=== PATIENT | male | born 1990 | race Caucasian/White ===

== ENCOUNTER 2023-07-25 19:51 | Emergency (ER) | payer BC, SELFPAY ==
--- NOTE | 2023-07-25 | ECG_ITS ---
Test Reason : CHEST PAIN Blood Pressure : / mmHG Vent. Rate : 071 BPM Atrial Rate : 071 BPM P-R Int : 142 ms QRS Dur : 102 ms QT Int : 370 ms P-R-T Axes : 028 -09 011 degrees QTc Int : 402 ms Normal sinus rhythm Normal ECG No previous ECGs available Referred By: Generic ED Physician Electronically Signed By:JIMENA GÓMEZ MD
--- NOTE | ~2023-07-25 | XR_ITS ---
EXAMINATION: XR CHEST CLINICAL INFORMATION: Chest pain COMPARISON: None available. TECHNIQUE: Frontal view of the chest was obtained. FINDINGS: No significant abnormality is noted involving the heart, lungs, mediastinum, bony thorax or soft tissues. XR/XR chest 1V IMPRESSION: Unremarkable chest examination.
[2023-07-25 19:56] VITALS: BP 142/87; PULSE 73; RESP 22; TEMP 36.9; O2SAT 98; BMI 32.0
--- NOTE | 2023-07-25 20:02 | ED_ITS ---
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 Related Data Allergies Allergy/AdvReac Type Severity Reaction Status Date / Time No Known Allergies Allergy Verified 07/25/23 19:56 Review of Systems 2 Review of Systems: Pertinent positives and negatives as stated in HPI [facility] Past Medical History Source: nursing notes reviewed Social History Social History Alcohol intake: current Alcohol intake frequency: holidays/special occasions only Smoked in Last 30 Days: No Use of substances other than those prescribed or required for medical reasons: No Advance Directives: No Advance Directives Information Provided: Yes Physical Exam 2 Vital Signs: Vital Signs: Last Vital Signs Temp 97.5 F 07/25/23 23:54 Pulse 61 07/25/23 23:54 Resp 17 07/25/23 23:54 BP 122/84 07/25/23 23:54 Pulse Ox 95 07/25/23 23:54 O2 Del Method Room Air 07/25/23 23:54 BMI result Body Mass Index 32.0 VITAL SIGNS: Reviewed. GENERAL: Well developed, well nourished, in no acute distress. HEAD: Normocephalic/atraumatic EYES: PERRLA, EOMI EARS: Ext canals without abnormality, TMs non-bulging and non-erythematous NOSE: Nares patent bilateral OROPHARYNX: no oral lesions noted, posterior pharynx clear and non-erythematous without noted tonsillar enlargement/erythema/exudates NECK: Supple, no adenopathy LUNGS: Normal breath sounds. No adventitious sounds or accessory muscle use. SpO2<95> CARDIOVASCULAR: Regular rate and rhythm without noted murmurs ABDOMEN: Soft, non-tender, non-distended with bowel sounds. MUSCULOSKELETAL: No tenderness, deformities, or effusions noted on gross inspection. EXTREMITIES: No cyanosis, clubbing or edema. SKIN: Inspection of the skin reveals no rashes NEUROLOGIC: Alert and oriented x 4. Strength and sensation to light touch were grossly intact x 4. Course Course Course Narrative: RME: 32 yold male presents to the ED for chest while at work. patient denies any leg swelling, calf pain, pleurisy, fever, or chills. EKG, labs, an chest xray ordred Medications Administered Discontinued Medications Generic Name Dose Route Start Last Admin Trade Name [place] PRN Reason Stop Dose Admin Acetaminophen 975 mg 07/26/23 00:54 07/26/23 01:22 Acetaminophen 325 Mg Tablet PO 07/26/23 00:55 975 mg ONCE ONE Administration Ibuprofen 400 mg 07/26/23 00:54 07/26/23 01:22 Ibuprofen 400 Mg Tablet PO 07/26/23 00:55 400 mg ONCE ONE Administration Medical Decision Making Medical Decision Making [facility] Narrative: 32-year-old male with history and clinical presentation, DDX: Viral syndrome, strep pharyngitis, less likely felt to be pneumonia or ACS. Provided patient with combination analgesics. I reviewed all investigations and hematologic indices are negative for leukocytosis/left shift there is no evidence of anemia or thrombocytopenia. Coagulation studies are within normal limits. Chemistry indices are grossly within normal limits without evidence of АНДРЕЙ and there is no electrolyte or liver enzyme abnormalities. High sensitivity troponin is undetectable in there are no acute findings on EKG to better explain patient's chest discomfort. Viral testing is negative for COVID-19 and influenza and rapid strep is negative. Chest x-ray does not demonstrate any infiltrate and otherwise my interpretation is in agreement with radiology's impression pain On re-evaluation patient is feeling improved after the combination analgesics. Differential Diagnosis Differential Diagnoses: The differential diagnosis associated with the presentation includes Please see the discussion above Admission/Observation Consideration of admission/observation: Escalation of care including admission/observation considered Please see the discussion above Lab Data [facility] Lab Attestation statement: I reviewed the patient's lab results. Please see the discussion above 07/25/23 21:37 07/25/23 21:37 Labs: Lab Results 07/25/23 07/26/23 07/26/23 Range/Units 21:37 01:33 01:59 WBC 9.2 (4.8-10.8) X10*3/uL RBC 4.68 (4.60-5.80) X10*6/uL Hgb 15.1 (14.0-18.0) g/dl Hct 44.5 (42.0-52.0) % MCV 95.1 (80.0-98.0) fL MCH 32.3 (27.0-33.0) pg MCHC 33.9 (31.0-36.0) g/dl RDW 11.9 (11.0-16.0) % Plt Count 313 (160-400) X10*3/uL MPV 9.6 (9.4-12.4) fL Immature Gran % (Auto) 0.2 (0.0-0.4) % Neut % (Auto) 69.0 (45-73) % Lymph % (Auto) 24.2 (20-40) % [place] % (Auto) 6.0 (2-11) % Eos % (Auto) 0.2 (0-4) % Baso % (Auto) 0.4 (0-2) % Lymph # (Auto) 2.2 (1.2-4.9) X10*3/uL [place] # (Auto) 0.6 (0.1-1.2) X10*3/uL Eos # (Auto) 0.0 (0.0-0.4) X10*3/uL Baso # (Auto) 0.0 (0.0-0.2) X10*3/uL Abs Immat Gran (auto) 0.02 (0.00-0.03) X10*3/uL Absolute Neuts (auto) 6.4 (2.0-8.3) x10*3/uL Absolute Nucleated RBC 0.000 (0.0-0.012) X10*3/uL Nucleated RBC % (auto) 0.0 (0.0-0.2) /100WBC PT 11.7 (11.1-13.3) SEC INR 1.0 (0.9-1.1) APTT 31.0 (26.0-36.4) SEC Sodium 143 (135-145) mmol/L Potassium 3.8 (3.3-5.1) mmol/L Chloride 109 H (96-108) mmol/L Carbon Dioxide 24 (22-29) mmol/L Anion Gap 14 (12-20) BUN 12 (9-16) mg/dL Creatinine 0.96 (0.5-1.4) mg/dL Estim Creat Clear Calc 146.2 Estimated GFR > 60 Random Glucose 111 (60-115) mg/dL Calcium 9.5 (8.4-10.2) mg/dL Total Bilirubin 0.6 (0.0-1.0) mg/dL AST 23 (5-37) U/L ALT 32 (0-40) U/L Alkaline Phosphatase 71 (39-117) U/L Troponin I High Sens < 2.7 (<3.5-35.0) ng/L Total Protein 7.8 (6.5-8.0) g/dL Albumin 4.3 (3.5-5.0) g/dL COVID-19 ([facility]) Negative (Negative) COVID-19 Clin Com See Note Influenza Type A ([facility]) Negative (Negative) Influenza Type B ([facility]) Negative (Negative) Influenza A & B Note See Note S. pyogenes GrpA [facility] Negative (Negative) Independent Interpretation I performed an independent interpretation of an: EKG Interpretation: Normal sinus rhythm, HR-71, no STEMI, [place]/QRS/QTC is within normal limits. Radiology Impression Discussion of test interpretation with radiology: I have reviewed the radiologist's reading. Radiologist Impression: Please see the discussion above Discharge Plan Discharge Clinical Impression: Viral syndrome, Atypical chest pain Patient Disposition: Home, Self-Care Instructions: Viral Syndrome (ED), General Headache (ED) Additional Instructions: 1. Recomiende Tylenol/ibuprofeno de venta marlene seg?n sea necesario para linda corporales, temperaturas superiores a 100,4 y linda de tonia. Si solo siente dolor de tonai, le recomiendo Excedrin migra?a. Mantente mihir hidratado con agua. 2. Programe la atenci?n con un proveedor de atenci?n primaria lo antes posible. Regrese a la denia de emergencias si los s?ntomas empeoran. 1. Recommend [id number] Tylenol/ibuprofen as needed for body aches, temperatures greater than 100.4 and headaches. If you are only experiencing a headache I highly recommend Excedrin migraine. Stay well hydrated with water. 2. Please set up care with a primary care provider at your earliest convenience. Return to the ER for any worsening symptoms. Stand Alone Forms: Work/School Release Interventions: ED Discharge Assessment Last Done: 07/26/23 04:50 Discharge Date/Time: 07/26/23 04:51 Print Language: [place] Rican
[2023-07-25 21:42] LABS: MANUAL DIFF FLAG NO
[2023-07-25 21:43] LABS: Basophils Percent Auto 0.4 % (0-2); Eosinophils Percent Auto 0.2 % (0-4); Hematocrit 44.5 % (42.0-52.0); Hemoglobin 15.1 g/dl (14.0-18.0); Imm Gran Abs Auto 0.02 X10*3/uL (0.00-0.03); Imm Gran Pct Auto 0.2 % (0.0-0.4); Lymphocytes Absolute Auto 2.2 X10*3/uL (1.2-4.9); Lymphocytes Percent Auto 24.2 % (20-40); Mean Corpuscular HGB Conc 33.9 g/dl (31.0-36.0); Mean Corpuscular Hemoglobin 32.3 pg (27.0-33.0); Mean Corpuscular Volume 95.1 fL (80.0-98.0); Mean Platelet Volume 9.6 fL (9.4-12.4); Monocytes Absolute Auto 0.6 X10*3/uL (0.1-1.2); Neutrophils Absolute Auto 6.4 x10*3/uL (2.0-8.3); Platelet Count 313 X10*3/uL (160-400); Red Blood Count 4.68 X10*6/uL (4.60-5.80); Red Cell Distribution Width 11.9 % (11.0-16.0); White Blood Count 9.2 X10*3/uL (4.8-10.8)
[2023-07-25 21:56] LABS: Prothrombin Time 11.7 SEC (11.1-13.3)
[2023-07-25 22:48] VITALS: BP 140/65; PULSE 61; RESP 20; O2SAT 97
[2023-07-25 23:25] LABS: Alanine Aminotransferase 32 U/L (0-40); Albumin Level 4.3 g/dL (3.5-5.0); Alkaline Phosphatase 71 U/L (39-117); Anion Gap 14 (12-20); Aspartate Amino Transferase 23 U/L (5-37); Bilirubin Total 0.6 mg/dL (0.0-1.0); Blood Urea Nitrogen 12 mg/dL (9-16); Calcium 9.5 mg/dL (8.4-10.2); Carbon Dioxide 24 mmol/L (22-29); Chloride 109 mmol/L (96-108); Creatinine Clr Calc Pharmacy 146.2; Estimated Glomerular Filt Rate > 60; Glucose Random 111 mg/dL (60-115); Potassium 3.8 mmol/L (3.3-5.1); Sodium 143 mmol/L (135-145); Total Protein 7.8 g/dL (6.5-8.0); Troponin-I High Sensitivity < 2.7 ng/L (<3.5-35.0)
[2023-07-25 23:54] VITALS: BP 122/84; PULSE 61; RESP 17; TEMP 36.4; O2SAT 95
[2023-07-26] MEDS: Acetaminophen 325 MG TABLET 975 MG PO (01:22)
[2023-07-26] MEDS: Ibuprofen 400 MG TABLET PO (01:22)
[2023-07-26 02:02] LABS: COVID-19 Test Negative (Negative); IDNOW Serial# 08D9AD1C; IDNOW Serial# BCCEAD1C; Influenza A Negative (Negative); Influenza B2 Negative (Negative)
[2023-07-26 02:14] LABS: IDNOW Serial# 08D9AD1C; Strep A Nucleic Acid Negative (Negative)
== END 2023-07-26 04:51 | disposition home or self-care (01) ==
PROVIDERS: Physician Assistant; Emergency Provider Student in an Organized Health Care Education/Training Program
DX: B34.9 Viral infection, unspecified (principal); R07.89 Other chest pain; R51.9 Headache, unspecified; R06.02 Shortness of breath; Z11.52 Encounter for screening for COVID-19
CPT/HCPCS: 36415; 71045; 80053; 84484; 85025; 85610; 85730; 87502; 87635; 87651; 93005; 99283; 99285

== ENCOUNTER 2023-07-31 12:07 | Emergency (ER) | payer BC, SELFPAY ==
--- NOTE | 2023-07-31 12:17 | ECG_ITS ---
Test Reason : cp Blood Pressure : / mmHG Vent. Rate : 061 BPM Atrial Rate : 061 BPM P-R Int : 140 ms QRS Dur : 090 ms QT Int : 368 ms P-R-T Axes : 037 -06 007 degrees QTc Int : 370 ms Normal sinus rhythm Normal ECG No significant changes seen Referred By: Berenice Ulloa Electronically Signed By:JIMENA GÓMEZ MD
[2023-07-31 12:18] VITALS: BP 130/85; PULSE 63; RESP 20; TEMP 36.6; O2SAT 100; BMI 33.0
--- NOTE | 2023-07-31 12:19 | ED.CHESTPAIN ---
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 Patient states that he has had a constant headache for the last month. He has been to hospital in [place] as well as [facility] [place] last week but he has not had any relief. Patient's describes this headache pain as a tight band like sensation going around his entire head. He denies any relieving medications. He denies positional changes worsening his headache. He reports intermittent nausea. He also endorses chest pain. Denies shortness of breath. He states that he is currently going through a divorce and is under a significant amount of stress and emotional turmoil since this occurred. Denies any other complaints or concerns at this time. MD complaint: chest pain Onset (ago): month(s) Timing of current episode: constant Prior episodes: Yes Pain radiation: none Relieving factors: nothing Exacerbating factors: nothing Associated symptoms: nausea Treatment prior to arrival: none Risk Factors Coronary artery disease risk factors: none Thoracic aortic dissection risk factors: none Related Data Allergies Allergy/AdvReac Type Severity Reaction Status Date / Time No Known Allergies Allergy Verified 07/25/23 19:56 Review of Systems Review of Systems: Yes all other systems are reviewed and are negative Constitutional: Constitutional: Reports as per [facility] Past Medical History Attestation statement: The following information was validated with the patient. Social History Social History Alcohol intake: current Alcohol intake frequency: holidays/special occasions only Advance Directives: No Advance Directives Information Provided: No Physical Exam Vital Signs: Vital Signs: Last Vital Signs Temp 98 F 07/31/23 18:52 Pulse 62 07/31/23 18:52 Resp 18 07/31/23 18:52 BP 126/70 07/31/23 18:52 Pulse Ox 100 07/31/23 18:52 O2 Del Method Room Air 07/31/23 18:52 BMI result Body Mass Index 33.0 Const: General: cooperative, comfortable and no acute distress Orientation/consciousness: patient oriented x3 Limitations: no limitations HEENT: Head: Yes normal to inspection, Yes normocephalic and Yes atraumatic Ears: hearing grossly normal bilaterally and TM's normal bilaterally General nose exam: Normal external nose present Face and sinus: Yes normal facial exam Mouth: Normal oral and palatal mucosa present, oropharynx normal and moist mucous membranes Throat: Yes posterior oropharynx normal Eyes: General: appearance normal, both eyes and all related structures Eyelids: Yes eyelids normal Conjunctivae: conjunctivae normal Sclerae: sclerae normal Pupils: Equal, round and reactive pupils present EOM: EOMs intact bilaterally Neck: Neck: Yes normal visual inspection, Yes full ROM and Yes no lymphadenopathy Lymphatic: no lymphadenopathy noted Chest: Other: Tenderness to palpation along the anterior chest wall. Chest palpation & inspection: normal inspection of the chest Resp: Effort & Inspection: normal respiratory effort and able to speak in complete sentences Auscultation: clear to auscultation bilaterally, no crackles, no rales, no rhonchi and no wheezes Cardio: Rate: regular rate Rhythm: regular rhythm Heart sounds: S1 normal heart sound present and S2 normal heart sound present GI: Inspection: Yes normal to inspection Skin: General skin exam: no rashes or lesions noted Trauma: no lacerations or abrasions Wounds: no wounds Neuro: General: patient oriented x3, moves all extremities and CN's II-XI intact bilaterally Cranial nerves: Yes CN's II-XII intact bilaterally, Yes Equal, round and reactive pupils present, Yes Nystagmus not present, Yes Ability to bilaterally rotate head present and Yes Ability to bilaterally elevate shoulders present Cognition (Neuro): normal cognition Gait exam (Neuro): Normal gait present Motor exam (neuro): 5/5 motor strength present throughout and Pronator motor function not present Extrem: General: Yes normal to inspection Right upper extremity: normal to inspection Left upper extremity: normal to inspection Right lower extremity: normal to inspection Left lower extremity: normal to inspection Course Course Course Narrative: RME: 32yo M w/no sig PMHx c/o constant MCGILL and chest pain x1 month. Has been taking Motrin w/o relief. Patient was seen in our ED on 07/25 for similar sx, had negative w/u. Admits sx are the same just not going away. EKG, Labs, COVID testing ordered Full HPI, ROS and PE to be performed by primary ED provider. Reevaluation(s) Reevaluation #1: Patient's symptoms improved after receiving a migraine cocktail. EKG without any acute findings. Negative troponin. Less likely ACS. I believe patient's symptoms are consistent with tension-type like headache/migraine. Discussed findings with patient. Advised to stay well hydrated, rest and follow-up with primary care physician. Advised to return with any new or worsening symptoms. Patient understands and agrees with plan. Patient stable discharge. Time: 18:49 Medications Administered Discontinued Medications Generic Name Dose Route Start Last Admin Trade Name Freq PRN Reason Stop Dose Admin Acetaminophen/Butalbital/Caffeine 2 tab 07/31/23 15:49 07/31/23 15:54 Butalb/Acetamin/Caff 50/325/40 Tablet PO 07/31/23 15:50 2 tab ONCE ONE Administration Diphenhydramine HCl 50 mg 07/31/23 16:43 07/31/23 16:59 Diphenhydramine Hcl 50 Mg/Ml Vial IVPUSH 07/31/23 16:44 50 mg ONCE ONE Administration Sodium Chloride 1,000 mls @ 999 mls/hr 07/31/23 16:43 07/31/23 18:14 Ns IV 07/31/23 17:43 Infused .Q1H1M ONE Infusion Ketorolac Tromethamine 30 mg 07/31/23 16:43 07/31/23 16:58 Ketorolac Tromethamine 30 Mg/Ml Vial IVPUSH 07/31/23 16:44 30 mg ONCE ONE Administration Metoclopramide HCl 10 mg 07/31/23 16:43 07/31/23 16:59 Metoclopramide Hcl 10 Mg/2 Ml Vial IVPUSH 07/31/23 16:44 10 mg ONCE ONE Administration Medical Decision Making Medical Decision Making MDM Narrative: 32-year-old male presenting to the emergency department for evaluation of headache and chest pain x1 month. Patient has been seen in a [place] hospital where he had imaging which was negative. He also reports that he was seen last week for similar symptoms. He has been taking ibuprofen without any relief. On arrival, vital signs within normal limits. Patient is neurologically intact. Labs EKG and COVID testing was ordered in triage. No acute findings. Patient was also medicated with Fioricet in the department which provided him without any relief. Patient admits to having significant stressors at home, reports that he is in the middle of a divorce which is stressful for him. Differential diagnoses include tension type headache, migraine headache, ACS-unlikely. Plan: Migraine cocktail and reassess. Differential Diagnosis Differential Diagnoses: The differential diagnosis associated with the presentation includes See above Lab Data MDM Lab Attestation statement: I reviewed the patient's lab results. No leukocytosis, stable H&H, troponin negative. 07/31/23 12:32 07/31/23 12:32 Labs: Lab Results 07/31/23 Range/Units 12:32 WBC 8.2 (4.8-10.8) X10*3/uL RBC 4.92 (4.60-5.80) X10*6/uL Hgb 16.2 (14.0-18.0) g/dl Hct 47.4 (42.0-52.0) % MCV 96.3 (80.0-98.0) fL MCH 32.9 (27.0-33.0) pg MCHC 34.2 (31.0-36.0) g/dl RDW 12.0 (11.0-16.0) % Plt Count 315 (160-400) X10*3/uL MPV 9.6 (9.4-12.4) fL Immature Gran % (Auto) 0.2 (0.0-0.4) % Neut % (Auto) 71.3 (45-73) % Lymph % (Auto) 21.3 (20-40) % [place] % (Auto) 6.1 (2-11) % Eos % (Auto) 0.6 (0-4) % Baso % (Auto) 0.5 (0-2) % Lymph # (Auto) 1.7 (1.2-4.9) X10*3/uL [place] # (Auto) 0.5 (0.1-1.2) X10*3/uL Eos # (Auto) 0.1 (0.0-0.4) X10*3/uL Baso # (Auto) 0.0 (0.0-0.2) X10*3/uL Abs Immat Gran (auto) 0.02 (0.00-0.03) X10*3/uL Absolute Neuts (auto) 5.8 (2.0-8.3) x10*3/uL Absolute Nucleated RBC 0.000 (0.0-0.012) X10*3/uL Nucleated RBC % (auto) 0.0 (0.0-0.2) /100WBC Sodium 144 (135-145) mmol/L Potassium 4.2 (3.3-5.1) mmol/L Chloride 107 (96-108) mmol/L Carbon Dioxide 27 (22-29) mmol/L Anion Gap 14 (12-20) BUN 13 (9-16) mg/dL Creatinine 1.11 (0.5-1.4) mg/dL Estim Creat Clear Calc 128.5 Estimated GFR > 60 Random Glucose 106 (60-115) mg/dL Calcium 10.6 H D (8.4-10.2) mg/dL Total Bilirubin 0.5 (0.0-1.0) mg/dL Direct Bilirubin 0.1 (0.0-0.5) mg/dL AST 24 (5-37) U/L ALT 38 (0-40) U/L Alkaline Phosphatase 65 (39-117) U/L Troponin I High Sens < 2.7 (<3.5-35.0) ng/L Total Protein 7.9 (6.5-8.0) g/dL Albumin 4.2 (3.5-5.0) g/dL COVID-19 ([facility]) Negative (Negative) COVID-19 Clin Com See Note Independent Interpretation I performed an independent interpretation of an: EKG Interpretation: EKG normal sinus rhythm with ventricular rate of 61 beats per minute, no ST elevation or depression. QTC 370 Radiology Impression Discussion of test interpretation with radiology: I have reviewed the radiologist's reading. External Record Review External record reviewed: Inpatient record, Office record, Outpatient record, Prior outpatient labs, Prior outpatient radiology, Primary care record and Outside ED record Discharge Plan Discharge Clinical Impression: Acute tension headache Patient Disposition: Home, Self-Care Instructions: Tension Headache (ED), Acute Headache (ED) Additional Instructions: You presented to the emergency department due to head pain and chest pain. Your EKG and labs are reassuring today. We gave you medications to help with your headache. Please rest, drink plenty of fluids, and stay in a quiet dark room. Stressed can be a contributor to these types of headaches. It is important to lower stress levels whether that is with exercise, meditation, or therapy. If any new or worsening symptoms occur including but not limited to worsening headaches, dizziness, chest pain, shortness of breath, please return for re-evaluation. Usted acudi? al servicio de urgencias por dolor de tonia y dolor de pecho. Rivas electrocardiograma y bernardo an?lisis de laboratorio son tranquilizadores hoy. Le dimos medicamentos para ayudarle con rivas dolor de tonia. Descanse, marzena muchos l?quidos y permanezca en fadi habitaci?n tranquila y oscura. El estr?s puede contribuir a cesar tipo de linda de tonia. Es importante reducir los niveles de estr?s, ya sea mediante ejercicio, meditaci?n o terapia. Si se presenta alg?n s?ntoma nuevo o que empeora, incluidos, entre otros, empeoramiento de los linda de tonia, mareos, dolor en el pecho y dificultad para respirar, regrese para fadi nueva evaluaci?n. Stand Alone Forms: Work/School Release
[2023-07-31 12:36] LABS: MANUAL DIFF FLAG NO
[2023-07-31 12:39] LABS: Basophils Percent Auto 0.5 % (0-2); Eosinophils Absolute Auto 0.1 X10*3/uL (0.0-0.4); Eosinophils Percent Auto 0.6 % (0-4); Hematocrit 47.4 % (42.0-52.0); Hemoglobin 16.2 g/dl (14.0-18.0); Imm Gran Abs Auto 0.02 X10*3/uL (0.00-0.03); Imm Gran Pct Auto 0.2 % (0.0-0.4); Lymphocytes Absolute Auto 1.7 X10*3/uL (1.2-4.9); Lymphocytes Percent Auto 21.3 % (20-40); Mean Corpuscular HGB Conc 34.2 g/dl (31.0-36.0); Mean Corpuscular Hemoglobin 32.9 pg (27.0-33.0); Mean Corpuscular Volume 96.3 fL (80.0-98.0); Mean Platelet Volume 9.6 fL (9.4-12.4); Monocytes Absolute Auto 0.5 X10*3/uL (0.1-1.2); Monocytes Percent Auto 6.1 % (2-11); Neutrophils Absolute Auto 5.8 x10*3/uL (2.0-8.3); Neutrophils Percent Auto 71.3 % (45-73); Platelet Count 315 X10*3/uL (160-400); Red Blood Count 4.92 X10*6/uL (4.60-5.80); White Blood Count 8.2 X10*3/uL (4.8-10.8)
[2023-07-31 12:52] LABS: Alanine Aminotransferase 38 U/L (0-40); Albumin Level 4.2 g/dL (3.5-5.0); Alkaline Phosphatase 65 U/L (39-117); Anion Gap 14 (12-20); Aspartate Amino Transferase 24 U/L (5-37); Bilirubin Direct 0.1 mg/dL (0.0-0.5); Bilirubin Total 0.5 mg/dL (0.0-1.0); Blood Urea Nitrogen 13 mg/dL (9-16); Calcium 10.6 mg/dL (8.4-10.2); Carbon Dioxide 27 mmol/L (22-29); Chloride 107 mmol/L (96-108); Creatinine Clr Calc Pharmacy 128.5; Estimated Glomerular Filt Rate > 60; Glucose Random 106 mg/dL (60-115); Potassium 4.2 mmol/L (3.3-5.1); Sodium 144 mmol/L (135-145); Total Protein 7.9 g/dL (6.5-8.0)
[2023-07-31 12:55] LABS: COVID-19 Test Negative (Negative); IDNOW Serial# BCCEAD1C
[2023-07-31 13:04] LABS: Troponin-I High Sensitivity < 2.7 ng/L (<3.5-35.0)
[2023-07-31] MEDS: Butalb/Acetamin/Caff 50/325/40 TABLET 2 TAB PO (15:54)
[2023-07-31 15:55] VITALS: BP 124/82; PULSE 61; RESP 17; TEMP 36.2; O2SAT 99
[2023-07-31] MEDS: Ketorolac Tromethamine 30 MG/ML VIAL IVPUSH (16:58)
[2023-07-31] MEDS: Metoclopramide HCl 10 MG/2 ML VIAL IVPUSH (16:59)
[2023-07-31] MEDS: diphenhydrAMINE HCL 50 MG/ML VIAL IVPUSH (16:59)
[2023-07-31] MEDS: 0.9 % Sodium Chloride 1,000 ML 999 ML IV (17:09)
[2023-07-31 18:52] VITALS: BP 126/70; PULSE 62; RESP 18; TEMP 36.6; O2SAT 100
== END 2023-07-31 19:23 | disposition home or self-care (01) ==
PROVIDERS: Physician Assistant; Emergency Provider Emergency Medicine
DX: G44.209 Tension-type headache, unspecified, not intractable (principal); R07.9 Chest pain, unspecified; Z11.52 Encounter for screening for COVID-19
CPT/HCPCS: 80048; 80076; 84484; 85025; 87635; 93005; 96361; 96374; 96375; 99284; J1200; J1885; J2765

== ENCOUNTER 2024-09-03 16:11 | Outpatient (REF) | payer BC, SELFPAY ==
[2024-09-04 06:13] LABS: CT PCR NOT DETECTED (Not Detect.); NG PCR NOT DETECTED (Not Detect.)
== END 2024-09-03 16:12 | disposition home or self-care (01) ==
LOC: HO.CHCLNP 16:11
PROVIDERS: Visit Provider Family Medicine
DX: Z11.3 Encounter for screening for infections with a predominantly sexual mode of transmission (principal)
CPT/HCPCS: 87491; 87591

== ENCOUNTER → 2024-12-07 17:07 | Outpatient (BNV) | payer OTHER, SELFPAY | PROVIDERS: PCP Family Medicine; Visit Provider Radiology Diagnostic Radiology | DX: R51.9 Headache, unspecified (principal) | CPT/HCPCS: 70551 ==

== ENCOUNTER 2024-12-07 17:22 | Outpatient (REF) | payer OTHER, SELFPAY ==
--- NOTE | ~2024-12-07 | MR_ITS ---
EXAMINATION: MR BRAIN WITHOUT IV CONTRAST HISTORY: NEW PERSISTENT DAILY MCGILL TECHNIQUE: Sagittal T1, and axial T1, FLAIR, T2, gradient echo, and diffusion weighted MR images of the brain were obtained. COMPARISON: None FINDINGS: The brain parenchyma is unremarkable, demonstrating normal anderson/white differentiation. No foci of abnormal signal intensity are identified. The ventricular system is normal in size and configuration. There is no mass effect or midline shift. No intra or extra-axial fluid collections are identified. There are no foci of restricted diffusion. Normal vascular flow voids are noted in the basilar and carotid arteries. The visualized paranasal sinuses are clear. MR/MR head/brain wo con IMPRESSION: Unremarkable MRI of the brain without contrast. Electronically signed by: Raymond Pratt MD 12/08/2024 03:44 PM EDT
--- OUTSIDE RECORDS SUMMARY | 2024-12-07 17:24 | XMS_ITS | Clinical Summary ---
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 12 tablet 11/30/2019 Active ibuprofen (MOTRIN) 600 MG tablet Take 1 tablet (600 mg total) by mouth 3 (three) times a day as needed for mild pain (pain). 12 tablet 11/30/2019 Active lidocaine (PROZENA) 4 % patch Place 1 patch on the skin daily. 30 patch 11/30/2019 Active butalbital-acetaminop hen-caffeine (FioriCET, ESGIC) 50-325-40 mg tablet Take 1 tablet by mouth every 4 (four) hours as needed for pain. Max: 6 capsules/tablets in 24 hours 10 tablet 09/10/2020 Active Immunizations Name Administration Dates Next Due Covid-19 MRNA Vaccine - Pfizer 12+ (Purple Cap) 01/31/2021,01/10/2021 Social History Tobacco Use Types Packs/Day Years Used Date Smoking Tobacco: Never Smokeless Tobacco: Never Alcohol Use Standard Drinks/Week Comments No 0 (1 standard drink = 0.6 oz pur e alcohol) Sex and Gender Information Value Date Recorded Sex Assigned at Male 06/13/2023 12:47 PM EDT Gender Identity Male 06/13/2023 12:47 PM EDT Sexual Orientation Heterosexual (straight) 06/13 12:47 PM EDT Last Filed Vital Signs Vital Sign Reading Time Taken Comments Blood Pressure 133/87 06/13/2023 8:29 PM EDT Pulse 64 06/13/2023 8:29 PM EDT Temperature 36 ??C (96.8 ??F) 06/13/2023 8:29 PM EDT Respiratory Rate 17 06/13/2023 8:29 PM EDT Oxygen Saturation 100% 06/13/2023 8:29 PM EDT Inhaled Oxygen Concentration - - Weight - - Height - - Body Mass Index - - Plan of Treatment Health Maintenance Due Date Last Done Comments Hepatitis C Virus Screening 1989 HIV Screening 2002 DTaP/Tdap/Td Vaccines (1 - Tdap) 2008 Hepatitis B Vaccines (1 of 3 - 19+ 3-dose series) 2008 Influenza Vaccine 05/01/2024 COVID-19 Vaccine (2023-2 5 season) 2024 01/31/2021, 01/10/2021 HPV Vaccines Aged Out No longer eligi ble based on patient's age to complete this topic Pneumococcal Vaccine: Pediatric (0-5 Years) and At-Risk Patients (6 to 49 Years) Aged Out No longer eligible b ased on patient's age to complete this topic Care Teams 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
--- OUTSIDE RECORDS SUMMARY | 2024-12-07 17:24 | XMS_ITS | Clinical Summary ---
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 1 kit 09/03/2024 Active aspirin-acetami nophen-caffeine (Excedrin Migraine) 250-250-65 MG tablet Take 2 tablets by mouth every 8 (eight) hours if needed for headaches. 60 tablet 09/03/2024 Active amLODIPine (Norvasc) 5 MG tablet Take 1 tablet (5 mg) by mouth Once per day. 90 tablet 1 09/18/2024 Active amitriptyline (Elavil) 25 MG tablet Take 2 tablets (50 mg) by mouth at bedtime. 180 tablet 1 09/18/2024 Active Active Problems Problem Noted Date Diagnosed Date Primary hypertension 09/18/2024 Assessment & Plan (09/18/2024 12:02 PM EST): Nursing Visit Instructions: - If SBP < 140/DBP <90 mmHg in more than 75% of home self-monitoring, continue current medication regimen and make f/u with PCP in 3 month - If SBP >140-165/DBP >90-115 mmHg , add incr amlodipine to 10 mg and f/u with PCP in 1 month - If SBP > 165/ DBP> 115 mmHg, consult with covering provider - If SBP <90/DBP <50 mmHg, consult with covering provider. Begin Amlodipine and continue to monitor BP at home. Follow up in 2 weeks with nurse and at home readings. Follow up in one month. Class 1 obesity due to exces s calories without serious comorbidity with body mass index (BMI) of 34.0 to 34.9 in adult 09/03/2024 Assessment & Plan (09/04/2024 1:51 PM EST): Discussed calorie deficit, recommended reduction of 20-30% of maintenance calories; meal attendant referral offered. Recommended to decrease soda and sugary beverage consumption. Recommended at least 20 g per meal of protein to assist with satiety. Recommended at least 150 min/week of moderate intensity exercise. Sleep apnea 09/03/2024 Assessment & Plan (09/04/2024 1:51 PM EST): Ordering Sleep Test for further evaluation. STOP BANG of 4. Headache, chronic daily 09/03/2024 Assessment & Plan (09/18/2024 12:01 PM EST): Increasing Elavil and follow up on next visit. Advised to follow up with Neurologist on 09/23 and to complete lab work from previous visit at earliest convenience. Assessment & Plan (09/04/2024 1:52 PM EST): Ordering MRI and referral to Neurology for further evaluation. Given new daily headaches will send imaging Send ppx medication Resolved Problems Problem Noted Date Diagnosed Date Resolved Date Elevated blood pressure reading 09/03/2024 09/18/2024 Assessment & Plan (09/03/2024 3:43 PM EST): Ordering BP home kit for at home monitoring. Follow up in 2 weeks via telephone with readings. Relevant Orders Blood Pressure Kit Encounters Date Type Department Care Team Description 10/02/2024 2:00 PM EST Clinical Support [facility] [address] [place] [address] Darrion Laguerre, SOFIYA Primary hypertension 10/02/2024 Telephone [facility] [address] [facility] [place] [address] Randee Rebollar MD 10/02/2024 Travel 09/18/2024 11:30 AM EST Telemedicine [facility] [address] [facility] [place] [address] Randee Rebollar MD Headache, chronic daily (Primary Dx); Elevated blood pressure reading; Primary hypertension 09/18/2024 Travel 09/17/2024 Telephone [facility] [address] [place] [address] Randee Rebollar MD Chart prep 09/08/2024 Telephone [facility] [address] [place], [place] [id number] Randee Rebollar MD from Last 3 Months Immunizations Name Administration Dates Next Due Influenza, Injectable, MDCK, preservative free 1 11/04/2023 Pfizer Covid-19 Vaccine 12+ 09/03/2024 Tdap 09/03/2024 Family History Medical History Relation Name Comments Epilepsy Mother Thyroid disease Mother Relation Name Status Comments Mother Social History Tobacco Use Types Packs/Day Years Used Date Smoking Tobacco: Never Passive Smoke Exposure: Never Smokeless Tobacco: Never Tobacco Cessation:Counseling Given: Not Answered Alcohol Use Standard Drinks/Week Comments Yes 0 (1 standard drink = 0.6 oz pur e alcohol) Social Depression Answer Date Recorded Patient Health Questionnaire-9 Score 5 09/03/2024 Patient Health Questionnaire-9 Score 5 09/03/2024 Last PHQ-9: Questionnaire Data Not on file 1 11/04/2023 Housing Stability Answer Date Recorded What is your housing situation today? I have delio huber 08/21/[address] you li ve. Do you have problems with any of the following? None of the above 08/21/2024 Food Insecurity Answer Date Recorded Within the past 12 months, y ou worried that your food would run out before you got money to buy more: Never True 08/21/2024 Within the past 12 months,th e food you bought just didn't last and you didn't have enough money to get more: Never True Transportation Answer Date Recorded In the past 12 months, has l ack of transportation kept you from medical appts, meetings, work or from getting things needed for daily living? No 08/21/2024 Utilities Answer Date Recorded In the past 12 months, has t he electric, gas, oil or water company threatened to shut off services in your home? No 08/21/2024 Depression Answer Date Recorded Patient Health Questionnaire-2 Score 2 09/03/2024 Internet Access Answer Date Recorded Internet Access Q1 Yes 08/21/2024 Internet Access Q2 Not on file 08/21/2024 Sex and Gender Information Value Date Recorded Sex Assigned at Male 06/25/2024 1:02 PM EDT Legal Sex Male 10:31 AM EST Gender Identity Male 06/25/2024 1:02 PM EDT Sexual Orientation Don't know 06/25/2024 1: 02 PM EDT Last Filed Vital Signs Vital Sign Reading Time Taken Comments Blood Pressure 131/87 10/02/2024 2:37 PM EST Pulse 72 10/02/2024 2:36 PM EST Temperature 36.7 ??C (98.1 ??F) 09/03/2024 2:43 PM ES T Respiratory Rate 14 09/03/2024 2:43 PM EST Oxygen Saturation 98% 09/03/2024 2:43 PM EST Inhaled Oxygen Concentration - - Weight 120 kg (265 lb 9.6 oz) 10/02/2024 2:36 PM EST Height 188 cm (6' 2 ) 09/03/2024 2:43 PM EST Body Mass Index 34.1 09/03/2024 2:43 PM EST Plan of Treatment Health Maintenance Due Date Last Done Comments HIV Screening 1989 Lipid Panel 1989 Family Planning (PISQ) 2004 Hepatitis C Screening 12/27/2007 Hepatitis B Vaccines (1 of 3 - 19+ 3-dose series) 2008 SDOH Screening 08/21/2025 08/21/2024 Depression Screening 09/03/2025 09/03/2024, 09/03/2024 Alcohol/Substance Use Screening 09/18/2025 09/18/2024 Tobacco Screening 09/18/2025 09/18/2024 DTaP/Tdap/Td Vaccines (2 - T d or Tdap) 09/03/2034 09/03/2024 Zoster Vaccines (1 of 2) 12/27/2039 RSV Patients and Patients Aged 60 years or older (1 - 1-dose 75+ series) 2064 COVID-19 Vaccine Completed 09/03/2024 Influenza Vaccine Completed 09/03/2024 HIB Vaccines Aged Out No longer eligi ble based on patient's age to complete this topic HPV Vaccines Aged Out No longer eligi ble based on patient's age to complete this topic Hepatitis A Vaccines Aged Out No long er eligible based on patient's age to complete this topic IPV Vaccines Aged Out No longer eligi ble based on patient's age to complete this topic Meningococcal Vaccine Aged Out No britt aly eligible based on patient's age to complete this topic Pneumococcal Vaccine: Pediatrics (0 to 5 Years) and At-Risk Patients (6 to 49) Years) Aged Out No longer eligible b ased on patient's age to complete this topic RSV under 20 months Aged Out No longe r eligible based on patient's age to complete this topic Rotavirus Vaccines Aged Out No longer eligible based on patient's age to complete this topic Insurance [employer] Care Teams Football 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
== END 2024-12-07 17:23 | disposition home or self-care (01) ==
LOC: HO.MRI 17:22
PROVIDERS: PCP Family Medicine; Visit Provider Family Medicine
DX: R51.9 Headache, unspecified (principal)
CPT/HCPCS: 70551